=== PATIENT | male | born 2000 | race Caucasian/White ===

== ENCOUNTER 2024-08-17 09:57 | Emergency (ER) | payer OTHER ==
[~2024-08-17] VITALS: Ht 180.3 cm; Wt 102.3 kg
[2024-08-17 09:59] VITALS: TEMP 97.6; O2SAT 99
[2024-08-17 16:33] VITALS: BP 130/72
== END 2024-08-17 16:37 | disposition home or self-care (01) ==
LOC: M ED 09:57
DX: S06.0X0A Concussion without loss of consciousness, initial encounter (principal); W20.8XXA Other cause of strike by thrown, projected or falling object, initial encounter; F17.200 Nicotine dependence, unspecified, uncomplicated; Y92.9 Unspecified place or not applicable; Y93.89 Activity, other specified; Y99.1 Military activity; Z88.1 Allergy status to other antibiotic agents